=== PATIENT | female | born 1950 | race Caucasian/White ===

== ENCOUNTER 2021-02-17 15:30 | Outpatient (CLI) | payer MEDICARE, BC | END 2021-02-17 15:31 | disposition home or self-care (01) | LOC: CSHMAMMO 15:30 | PROVIDERS: ATTEND Obstetrics & Gynecology | DX: Z12.31 Encounter for screening mammogram for malignant neoplasm of breast (principal); Z91.89 Other specified personal risk factors, not elsewhere classified | CPT/HCPCS: 77063; 77067 ==